=== PATIENT | female | born 1995 | race Caucasian/White ===

== ENCOUNTER 2019-04-23 07:30 | Emergency (ER) | payer OTHER ==
[~2019-04-23] VITALS: Ht 152.4 cm; Wt 45.4 kg
[~2019-04-23 07:30] MED LIST: BACTRIM DS TAB1 EAC1 PO; NOHOMEMEDICATIONS; PYRIDIUM200 M2 PO; ZOFRAN 4 MG ORAL4 MG PO
[2019-04-23] MEDS ORDERED: BIRTH CONTROL (07:42)
[2019-04-23] MEDS ORDERED: ACETAMINOPHEN-1 EAC1 PO (07:55)
[2019-04-23] MEDS ORDERED: AMOXIL 875 MG875 M1 PO (07:55)
[2019-04-23 07:59] VITALS: BP 138/84
== END 2019-04-23 07:59 | disposition home or self-care (01) ==
LOC: M.ERS 07:30
DX: J02.0 Streptococcal pharyngitis (principal); F17.210 Nicotine dependence, cigarettes, uncomplicated